=== PATIENT | male | born 2000 | race African-American/Black ===

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

== ENCOUNTER → 2018-06-05 | Outpatient (CLI) | payer OTHER | LOC: COL.RAD 14:30 | DX: M25.571 Pain in right ankle and joints of right foot (principal) ==

== ENCOUNTER 2019-05-09 22:17 | Emergency (ER) | payer OTHER ==
[~2019-05-09] VITALS: Ht 203.2 cm; Wt 107.7 kg
[2019-05-09 22:38] VITALS: TEMP 99.2
[2019-05-10 01:19] LABS: BASO % 0.3 % (0.0-2.0); EOS % 1.2 % (0-4.0); GRAN # 2.5 (1.4-6.5); GRAN % 75.4 % (42.2-75.2); HEMATOCRIT 45.9 % (42.0-52.0); HEMOGLOBIN 15.7 g/dl (13.5-18.0); LYMPH # 0.5 (1.2-3.4); LYMPH % 15.4 % (20.0-51.0); MEAN CELL VOLUME 90 fl (80.0-100.0); MEAN CORPUSCULAR HEMOGLOBIN 31 pg (27.0-31.0); MEAN CORPUSCULAR HGB CONC 34 g/dl (33.0-37.0); MEAN PLATELET VOLUME 10.4 fl (7.4-10.4); MONO # 0.3 (0.1-0.6); MONO % 7.4 % (1.7-9.3); PLATELET COUNT 198 K/mm3 (130-400); RED BLOOD COUNT 5.08 M/mm3 (4.20-5.60); REDCELL DISTRIBUTION WIDTH-CV 12.3 % (11.5-14.5)
[2019-05-10 01:35] LABS: ALBUMIN 4.8 gm/dL (3.5-5.0); BILIRUBIN,TOTAL 1.1 mg/dL (0.0-1.0); CALCIUM 9.8 mg/dL (8.4-10.2); CREATININE, serum 1.41 (0.66-1.25); POTASSIUM 3.8 mmol/L (3.4-5.0); TOTAL PROTEIN 8.4 gm/dL (6.4-8.2)
[2019-05-10 03:06] VITALS: BP 128/78; PULSE 89
== END 2019-05-10 03:22 | disposition home or self-care (01) ==
LOC: COL.ER 22:17
PROVIDERS: Emergency Medicine
DX: A08.4 Viral intestinal infection, unspecified (principal)
CPT/HCPCS: J2405; J7120